=== PATIENT | male | born 1945 | race Caucasian/White ===

== ENCOUNTER 2022-07-15 13:40 | Outpatient (RCR) | payer MEDICARE, OTHER, SELFPAY ==
--- NOTE | ~2022-07-15 | XR_ITS ---
EXAMINATION: XR ANKLE, LEFT CLINICAL INFORMATION: Nonhealing wound. Pain COMPARISON: None TECHNIQUE: AP, lateral, and mortise views of the left ankle. FINDINGS: There is slight irregularity to the skin overlying the distal fibula but no underlying fracture or destructive process. The mortise is intact. XR/XR ankle LT min 3V IMPRESSION: No underlying osseous abnormality.
== END 2022-08-05 12:03 | disposition home or self-care (01) ==
LOC: HO.WCC 13:40
PROVIDERS: PCP Internal Medicine; Visit Provider Physician Assistant
DX: L97.328 Non-pressure chronic ulcer of left ankle with other specified severity (principal); I87.2 Venous insufficiency (chronic) (peripheral); I10 Essential (primary) hypertension; Z87.891 Personal history of nicotine dependence
CPT/HCPCS: 73610; 99212